=== PATIENT | male | born 1950 | race African-American/Black ===

== ENCOUNTER → 2016-04-21 | Outpatient (CLI) | payer MEDICARE, OTHER ==
[~2016-04-21] MED LIST: COMB0.2S EACH EYE; IBUP200T2 PO; LUMI0.01 EACH EYE; MOME17I EACH NARE; SYMB80AE INH; TRAM50TA PO
[2016-04-21 08:20] LABS: AUTOMATED NEUTROPHIL # 3.5 TH/MM3 (1.8-7.7); BASOPHIL # 0.1 TH/MM3 (0-0.2); BASOPHIL % 1.2 % (0.0-2.0); EOSINOPHIL # 0.2 TH/MM3 (0-0.4); EOSINOPHIL % 2.9 % (0.0-4.0); HEMATOCRIT 44.1 % (39.0-51.0); HEMO FLAGS DIFF FINAL; LYMPH % 36.3 % (9.0-44.0); LYMPHOCYTE # 2.5 TH/MM3 (1.0-4.8); MEAN CORPUSCULAR HEMOGLOBIN 32.9 PG (27.0-34.0); MEAN CORPUSCULAR HGB CONC 34.3 % (32.0-36.0); MONO % 8.3 % (0.0-8.0); NEUT % 51.3 % (16.0-70.0); PLATELET COUNT 208 TH/MM3 (150-450); RED BLOOD COUNT 4.59 MIL/MM3 (4.50-5.90); RED CELL DISTRIBUTION WIDTH 12.8 % (11.6-17.2); WHITE BLOOD COUNT 6.9 TH/MM3 (4.0-11.0)
[2016-04-21 08:56] LABS: ALKALINE PHOSPHATASE 103 U/L (45-117); ALT (GPT) 21 U/L (12-78); ANION GAP 6 MEQ/L (5-15); AST (GOT) 14 U/L (15-37); BICARBONATE 28.8 MEQ/L (21.0-32.0); BLOOD UREA NITROGEN 16 MG/DL (7-18); CHLORIDE 105 MEQ/L (98-107); GLOMERULAR FILTRATION RATE 53 ML/MIN (>89); GLUCOSE,FASTING 136 MG/DL (74-99); HDL CHOLESTEROL 61.1 MG/DL (40.0-60.0); LDL CHOLESTEROL 94 MG/DL (0-99); SODIUM (NA) 140 MEQ/L (136-145); TOTAL BILIRUBIN ADULT 0.3 MG/DL (0.2-1.0)
[2016-04-21 14:17] LABS: HEMOGLOBIN A1a 0.8 %; HEMOGLOBIN A1b 0.7 %; HEMOGLOBIN Ao 85.2 %; HEMOGLOBIN LA1C 2.1 %; HEMOGLOBIN P3 3.5 %
== END ==
LOC: CLAB 08:02
PROVIDERS: ATTEND Family Medicine
DX: E11.9 Type 2 diabetes mellitus without complications (principal)
CPT/HCPCS: 36415; 80053; 80061; 83036; 85025

== ENCOUNTER 2016-11-25 18:26 | Emergency (ER) | payer MEDICARE, OTHER ==
[~2016-11-25] VITALS: Ht 165.1 cm; Wt 75.0 kg
[2016-11-25 18:27] VITALS: BP 171/90; PULSE 62; RESP 16; TEMP 98.5; O2SAT 98
[2016-11-25] MEDS ORDERED: PROPARACAINE HCL 0.5% OPHT SOLN 15 ML BTL LEFT EYE ONE (19:15)
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
[2016-11-26] MEDS ORDERED: LUMI0.01 EACH EYE ×2 (09:29→09:31)
[2016-11-26] MEDS ORDERED: COMB0.2S EACH EYE (09:31)
[2017-01-07] MEDS ORDERED: COMB0.2S EACH EYE (09:14)
== END 2016-11-25 19:43 | disposition home or self-care (01) ==
LOC: NEPK 18:26
DX: H53.142 Visual discomfort, left eye (principal); H20.9 Unspecified iridocyclitis; H40.9 Unspecified glaucoma
CPT/HCPCS: 99283

== ENCOUNTER 2016-12-04 19:19 | Emergency (ER) | payer MEDICARE, OTHER ==
[~2016-12-04] VITALS: Ht 177.8 cm; Wt 75.0 kg
[2016-12-04 19:21] VITALS: BP 167/94; PULSE 73; RESP 14; TEMP 98.3; O2SAT 98
--- NOTE | 2016-12-04 22:28 | PD ---
HPI Chief Complaint: Injury Time Seen by Provider: 22:20 Travel History International Travel<30 days: No Contact w/Intl Traveler<30days: No Traveled to known affect area: No History of Present Illness HPI 66-year-old male patient presents to the ER today because he states that he thinks he has something in his foot, thinks that he may have injured it a month ago and since then he has had pain on the right foot dorsum at around the area of the fifth metatarsal area. He states that he has been trying to pick at it but doesn't seem to find anything. He denies any other issues or injuries. Modifying Factors: None Associated Signs & Symptoms: Foot pain, thinks he has a foreign body for one month Risk Factors: None History Past Medical Histgory Tetanus Vaccination: Unknown Hx Cancer: No Past Surgical History Surgical History: No Previous Surgery Social History Alcohol Use: No Tobacco Use: Yes (1/2 PACK A DAY FOR 50 YEARS) Allergies-Medications (Allergen,Severity, Reaction): Coded Allergies: No Known Allergies (Verified , 11/26/16) Reported Meds & Prescriptions Reported Meds & Active Scripts Active Lumigan Opth Drops (Bimatoprost) 0.01% Soln 1 Drop EACH EYE HS Combigan Opth Drops (Brimonidine-Timolol Opth Drops) 0.2-0.5% Soln 1 Drop EACH EYE BID Reported Ibuprofen 200 Mg Tab 1 Tab PO PRN PRN Tramadol (Tramadol HCl) 50 Mg Tab 1 Tab PO PRN PRN Nasonex Nasal [place] (Mometasone Furoate) 50 Mcg/Act Naspr 2 [place] EACH NARE DAILY Symbicort Inh (Budesonide/Formoterol Fumarate) 80-4.5 Mcg/Act Aero 2 Puff INH DAILY Review of Systems Except as stated in HPI: all other systems reviewed are Neg Physical Exam Narrative GENERAL: Well-developed middle age -[place] male patient currently in no acute distress. Awake and oriented 3. SKIN: Focused skin assessment warm/dry. HEAD: Atraumatic. Normocephalic. EYES: Pupils equal and round. No scleral icterus. No injection or drainage. ENT: Mucous membranes pink and moist. NECK: Trachea midline. No JVD. MUSCULOSKELETAL: No obvious deformities. No clubbing. No cyanosis. No edema. NEUROLOGICAL: Awake and alert. No obvious cranial nerve deficits. Motor grossly within normal limits. Normal speech. PSYCHIATRIC: Appropriate mood and affect; insight and judgment normal. Right foot: There is notable has centimeter area of skin discoloration on the site with small amount of skin denudation with no surrounding erythema. It do not feel any fluctuance or underlying foreign body. Data Data Last Documented VS Vital Signs Date Time Temp Pulse Resp B/P (MAP) Pulse Ox O2 Delivery O2 Flow Rate FiO2 12/04/16 19:21 98.3 73 14 167/94 (118) 98 Room Air MDM Medical Screen Exam Complete: Yes Emergency Medical Condition: No Narrative Course History any signs of infection or any acute injuries. At this point, this appears to be a one-month old problem and I do not feel that this is an acute emergency. At this point, I have recommended that the patient follows up with his primary care physician. He should return for any worsening in symptoms as needed. He should avoid picking in the area. A medical screening exam was done by me today. No acute emergency was identified. Should symptoms worsen or should a medical emergency develop, you should return for further evaluation. Findings were discussed with the patient and all questions answered. Patient states understanding. Primary Impression: Right foot pain Disposition: [facility]GO-ED USE ONLY Condition: Stable Suzan Kirby MD Dec 04, 2016 22:28
[2017-01-07] MEDS ORDERED: COMB0.2S EACH EYE (09:14)
== END 2016-12-04 22:44 | disposition left against medical advice (07) ==
LOC: NEPE 19:19
DX: Z00.8 Encounter for other general examination (principal); M79.671 Pain in right foot
CPT/HCPCS: 99281